=== PATIENT | male | born 1960 | race Caucasian/White ===

== ENCOUNTER 2022-03-14 09:45 | Day surgery (SDC) | payer OTHER ==
[~2022-03-14] VITALS: Ht 170.2 cm; Wt 91.8 kg
[~2022-03-14 09:45] MED LIST: AMLO2.5T2 PO; ASPI-1393 PO; ESCI10TA PO; LIP20 PO; METF-518 PO; PANT20TA2 PO; TRAZ-250 PO
[2022-03-14] MEDS ORDERED: LR 1,000 ML IV.SOLN IV ONE (12:18)
[2022-03-14] MEDS ORDERED: fentaNYL CITRATE/PF 100 MCG/2 ML AMP ONE (12:18)
[2022-03-14] MEDS ORDERED: MIDAZOLAM HCL 2 MG/2 ML VIAL (VERSED) ONE (12:18)
[2022-03-14] MEDS ORDERED: PROPOFOL 200MG/ 20ML VIAL (DIPRIVAN) IV ONE (12:18)
[2022-03-14] MEDS ORDERED: LIDOCAINE 1% 10 MG/ML, 20 ML MDV ONE (12:18)
[2022-03-14] MEDS ORDERED: KETOROLAC TROMETHAMINE 30 MG VIAL ONE (12:18)
[2022-03-14] MEDS ORDERED: hydrALAZINE HCL 20 MG/ML VIAL IVP PRN (13:00)
[2022-03-14] MEDS ORDERED: MEPERIDINE HCL/PF 25 MG/ML DISP.SYRIN IVP PRN (13:00)
[2022-03-14] MEDS ORDERED: ONDANSETRON HCL 4 MG/2 ML VIAL IVP PRN (13:00)
[2022-03-14] MEDS ORDERED: MIDAZOLAM HCL 2 MG/2 ML VIAL (VERSED) IVP PRN (13:00)
[2022-03-14] MEDS ORDERED: HYDROmorphone 1 MG/ML INJ. CARTRIDGE IVP PRN (13:00)
[2022-03-14] MEDS ORDERED: LABETALOL 100 MG/ 20ML VIAL IVP PRN (13:00)
[2022-03-14] MEDS ORDERED: LR 1,000 ML IV SCH (13:00)
[2022-03-14] MEDS: HYDROmorphone 1 MG/ML INJ. CARTRIDGE IVP PRN ×3 (13:14→13:36)
[2022-03-14] MEDS ORDERED: HYDROmorphone 1 MG/ML INJ. CARTRIDGE ONE ×2 (13:15→13:42)
[2022-03-14 16:16] VITALS: BP_SYST 154
== END 2022-03-14 16:35 | disposition home or self-care (01) ==
LOC: SDS 09:45 → SMU 09:49 → SDS 16:35
PROVIDERS: ATTEND Orthopaedic Surgery
DX: T84.092A Other mechanical complication of internal right knee prosthesis, initial encounter (principal); M25.662 Stiffness of left knee, not elsewhere classified; M17.11 Unilateral primary osteoarthritis, right knee; Z96.651 Presence of right artificial knee joint; Z79.82 Long term (current) use of aspirin; Z79.84 Long term (current) use of oral hypoglycemic drugs; Z79.899 Other long term (current) drug therapy; Y82.8 Other medical devices associated with adverse incidents; Z20.822 Contact with and (suspected) exposure to COVID-19
CPT/HCPCS: 27570; 82962; 36415; 87426; J1885; J2001; J3465; J2704; J3010; J1170; J7120